=== PATIENT | female | born 1940 | race Caucasian/White ===

== ENCOUNTER 2016-04-18 13:55 | Emergency (ER) | payer MEDICARE ==
[~2016-04-18] VITALS: Ht 160 cm; Wt 65.9 kg
[2016-04-18 13:57] VITALS: BP 176/86; PULSE 98; RESP 20; O2SAT 97
--- NOTE | 2016-04-18 15:07 | ED.REPORT ---
HPI-Dyspnea / Wheezing Date of Service Apr 18, 2016 ED Provider: Kalani Henriquez Nursing Notes Stated Complaint: FEVER,BACK PAIN,SHORT OF BREATH Chief Complaint: Respiratory Complaints Nursing Notes Reviewed: Yes Allergies: Coded Allergies: niacin (Verified Allergy, Mild, 04/18/16) No Known Allergies (Unverified Allergy, Unknown, 03/27/14) Scheduled Albuterol HFA (Proair HFA) 8.5 Gm Hfa.aer.ad 2 PUFFS INHALATION Q4H Azithromycin (Zithromax (Z-Maxwell)) 250 Mg Tablet 250 MG PO DIRECTED Take two tablets by mouth on day 1, then take one tablet daily on days 2 through 5. Prednisone (PredniSONE) 20 Mg Tablet 40 MG PO DAILY General Time Seen by MD: 14:43 Transferred From: Private physician office (urgent care) Chief Complaint Cough, Shortness of breath, Wheezing URI symptoms for past 6 days, fever, short of breath, cough. Seen at and chest x-ray shows a mass to left upper lobe that is mildly displacing the esophagus. Sent to ER for further evaluation and possible admission. Hx Obtained From: Patient Arrived By: Walk-in Sudden in Onset?: Yes Onset Occurred: 6 days ago Context of Onset: Upper resp infection Symptom Duration: Since onset Location: : None Quality: Same as prior Radiation: : Does not radiate Severity: Current: No pain currently Severity: Maximum: No pain Associated with: Reports: Cough, Fever, Denies: Hemoptysis, Nausea, Sore throat, Vomiting Pertinent Negative: Pt denies other symptoms Exacerbated by: Cough, Deep breath Relieved by: Rest Recent Healthcare: Recent doctor visit Similar Sx Previous: No Past Medical History Past Medical History Reports: COPD, Denies: Asthma, Coronary artery disease, Diabetes mellitus, GERD, Hyperlipidemia Smoking History Former Smoker Social History Alcohol Use: Denies alcohol use Drug Use: Denies drug use Other Social History: Good social support Ambulatory Status Independent Review of Systems Basic Review of Systems Eyes: Vision NL, No discharge GI: No abdominal pain, No anorexia, No nausea, No vomiting : No dysuria, No frequency Hematologic: No bleeding, No bruising Endocrine: No cold intolerance, No heat intolerance, No weight gain, No weight loss Neurologic: NL mental status, No weakness, No numbness Psychiatric: Normal thought content Constitutional: Reports: Fatigue, Fever Ears / Nose / Throat: Reports: Nasal congestion, Denies: Ear drainage bilateral, Earache bilateral, Sore throat Respiratory: Reports: Non-productive cough, Wheezing, Denies: Dyspnea on exertion, Hemoptysis, Shortness of breath Cardiovascular: Denies: Chest pain, Edema Musculoskeletal: Denies: Back pain Skin: Denies Bruising, Denies Rash Complete sys rev & neg: except as marked. Physical Exam Initial Vital Signs Vital Signs (First) Date Time Temp Pulse Resp B/P Pulse Ox O2 Delivery O2 Flow Rate FiO2 04/18/16 13:57 36.6 98 20 176/86 97 Room Air Initial VS: Reviewed Head / Eyes: Atraumatic, Normocephalic, PERRL ENT: Mucous membranes moist, Conjunctiva normal, No scleral icterus Abdomen / GI: Soft, Non-tender, No guarding, No rebound, No distention Back: No CVA tenderness Lymphatic: No lymphadenopathy Extremities: Vascular intact, Neuro intact, No swelling, No tenderness Skin: Warm, Dry, No cyanosis Neurologic: Alert, Oriented, Nonfocal Psychiatric: Mood/affect normal, Behavior normal, Normal thought content General/Constitutional: Awake, Alert, No acute distress Neck: Atraumatic, Supple, No tracheal deviation Respiratory / Chest: Atraumatic, No respiratory distress Diminished Breath Sounds: Negative: Decreased bilateral Wheezing / Retractions: Positive: Wheezing expiratory, Negative: Accessory muscle use mild Rales / Rhonchi: Positive: Rhonchi coarse L, Rhonchi coarse R, Rhonchi diffuse Cardiovascular: Heart rate NL, Regular rhythm, Heart sounds NL, No gallop, No murmurs, No rubs Interpretation & Diagnostics Interpretation & Diagnostics: IMPRESSION: 1. No mediastinal mass as suspected on the chest x-ray from earlier today. The questionable mass lesion visualized represents artifact from the densely calcified tortuous thoracic aorta. 2. Borderline enlarged subcarinal lymph node which is a nonspecific finding and may be associated with inflammatory, infectious, or neoplastic etiologies. There are no other findings to suggest neoplasm. Dictated by: Lary Amador M.D. on 04/18/2016 at 17:04 Lab Results Interpretation Result Diagram: 04/18/16 1545 04/18/16 1545 Test 04/18/16 15:45 White Blood Count 7.8th/mm3 (3.8-10.1) Red Blood Count 4.19mil/mm3 (3.90-5.20) Hemoglobin 12.3g/dL (12.0-15.6) Hematocrit 35.4% (35.0-46.0) Mean Corpuscular Volume 84.5fL (81-100) Mean Corpuscular Hemoglobin 29.4pg (27.0-35.0) Mean Corpuscular Hemoglobin Concent 34.7% (32.0-37.0) Red Cell Distribution Width 12.3% (12.3-15.4) Platelet Count 190bil/L (150-400) Neutrophils (%) (Auto) 79.1% (40-74) Lymphocytes (%) (Auto) 11.4% (14-46) Monocytes (%) (Auto) 9.0% (4-12) Eosinophils (%) (Auto) 0% (0-5) Basophils (%) (Auto) 0.4% (0-3) Sodium Level 127mEq/L (134-144) Potassium Level 3.6mEq/L (3.5-5.2) Chloride Level 90mEq/L (97-108) Carbon Dioxide Level 22mmol/L (18-29) Blood Urea Nitrogen 13mg/dL (8-27) Creatinine 0.55mg/dL (0.57-1.00) Estimat Glomerular Filtration Rate 155mL/min (>59) Glucose Level 124mg/dL (60-99) Calcium Level 8.5mg/dL (8.5-10.1) Total Bilirubin 0.3mg/dL (0.0-1.2) Aspartate Amino Transf (AST/SGOT) 25U/L (0-50) Alanine Aminotransferase (ALT/SGPT) 19U/L (0-32) Alkaline Phosphatase 43U/L (25-165) Total Protein 7.4g/dL (6.4-8.4) Albumin 4.2g/dL (3.4-5.0) Hold Munoz Top Tube Received (Received) Lab Results Interpretation: Dr Suero: CBC normal CMP normal except for trace nature anemia CT Chest Interpretation Study type: Chest CT w contrast Interpretation / Wet Read by: Interpret - Radiologist NL CT Chest Findings: Normal mediastinum, No mass, No pneumothorax Re-Eval/Medical Decision Consultation : Referral / Consult Name: Martín Suero MD Tipple Operator: Agrees with eval, Agrees with plan Note: Reviewed case with Dr. Suero who also examined pt and agrees with evaluation and plan. Differential Diagnosis: Positive: COPD exacerbation, Pneumonia, Pulmonary embolism, Upper resp infection Initial concern for pulmonary mass ruled out. Counseled Regarding: Diagnosis, Lab results, When/why to return to ED Discharge & Departure Impression: Primary Impression: COPD exacerbation Disposition: Home Discharge Condition All VS Reviewed: Yes Condition: Improved Patient Instructions: Chronic Obstructive Pulmonary Disease (ED) Additional Instructions: Take your medications as prescribed. Drink plenty of liquids to help thin secretions and help you cough more effectively. You may take Tylenol every 4 to 6 hours and/or ibuprofen every 8 hours for fever and discomfort. Follow up with your regular doctor as needed or return to Urgent Care or the ER for persistent fever, weakness, or any other concerns. Referrals: Roshan Kunz MD (PCP) EDSupervising Provider for APC: Martín Suero MD Attending Statement This was a patient who was initially seen by the mid-level provider then sent over from clinic, however I personally interviewed and examined this patient. There is initial concern as the patient had a complaint of fever cough, she does have known COPD, and had normal abnormal chest x-ray with a concern for possible mass. Of her here in the department the patient actually looks clinically well, she is energetic and clinically well-appearing. She is not currently febrile, she is not hypoxic tachycardic or hypotensive. She underwent a workup that included a chest CT scan, there revealed the abnormality seen on CT appears normal calcification, and does not represent a pathological finding. She does have COPD, but no pneumonia, pneumothorax, or other pathology is evident. Blood work was also normal. On exam she clinically appears quite well. The plan at this point given her symptoms as empiric treatment for COPD exacerbation. Patient's comfortable to need requesting to be discharged home. Kalani Henriquez Apr 18, 2016 15:07 Martín Suero MD Apr 18, 2016 19:31
[2016-04-18] MEDS ORDERED: Albuterol 2.5 mg/3 mL Inhalation Solution NEB ONE (15:10)
[2016-04-18 15:58] LABS: BASOPHILS % (AUTO) 0.4 % (0-3); EOSINOPHILS % (AUTO) 0 % (0-5); Mean Corpuscular Hemoglobin 29.4 pg (27.0-35.0); Mean Corpuscular Volume 84.5 fL (81-100); NEUTROPHILS % (AUTO) 79.1 % (40-74); Platelet Count 190 bil/L (150-400)
[2016-04-18 16:06] VITALS: PULSE 83; RESP 16; O2SAT 96
[2016-04-18 16:59] VITALS: BP 168/71; PULSE 94; RESP 17; O2SAT 98
--- NOTE | 2016-04-18 17:11 | DRSVH ---
PROCEDURE: CT CHEST WITH CONTRAST ([id number]) INDICATIONS: lung mass seen on chest x-ray TECHNIQUE: After the administration of intravenous contrast, 5 mm thick sections acquired from the pulmonary api jeanette to the posterior costophrenic angles. 7 mm thick coronal and sagittal MIP reformats were acquire d. For radiation dose reduction, the following was used: automated exposure control, adjustment of mA and/or kV according to patient size. COMPARISON: [facility], CR, XR CHEST 2VW, 04/18/2016, 13:25. FINDINGS: Image quality: Excellent. Lungs and pleura: There is mild centrilobular emphysema with apical predominance. Scattered apical bl ebs are present as well. No acute airspace opacities. No pleural effusion or pneumothorax. Mediastinum: Heart size is normal. No pericardial effusion. Dense atheromatous calcifications are pre sent at the aortic arch. The thoracic aorta is tortuous and demonstrates mass effect on the adjacent trachea displacing it slightly rightward. There is an 11 mm diameter subcarinal lymph node. No discre te mediastinal or hilar mass lesions. Bones and chest wall: No suspicious bony lesions. No vertebral body compression fractures. No axil apollo or supraclavicular adenopathy by size criteria. Thyroid gland is unremarkable. Abdomen: Visualized upper abdominal solid organs appear normal. Upper abdominal bowel loops are nor mal in caliber. IMPRESSION: 1. No mediastinal mass as suspected on the chest x-ray from earlier today. The questionable mass lesi on visualized represents artifact from the densely calcified tortuous thoracic aorta. 2. Borderline enlarged subcarinal lymph node which is a nonspecific finding and may be associated wit h inflammatory, infectious, or neoplastic etiologies. There are no other findings to suggest neoplasm . Dictated by: Lary Amador M.D. on 04/18/2016 at 17:04 Approved by: Lary Amador M.D. on 04/18/2016 at 17:09
[2016-04-18 18:11] VITALS: BP 165/83; PULSE 90; RESP 22; O2SAT 96
[2016-04-18] MEDS ORDERED: AZIT250T4 PO (18:17)
[2016-04-18] MEDS ORDERED: PRE20 PO (18:17)
[2016-04-18] MEDS ORDERED: ALBU8.5H2 INHALATION (18:17)
[2016-04-18] MEDS ORDERED: predniSONE 20 mg Tablet PO ONE (18:25)
[2016-04-18] MEDS ORDERED: Albuterol HFA 60 Puff 8 Gm Inhaler INHALATION ONE (18:25)
[2016-04-18 18:34] VITALS: BP 165/83; PULSE 90; O2SAT 96
== END 2016-04-18 18:35 | disposition home or self-care (01) ==
LOC: SED 13:55
DX: J44.1 Chronic obstructive pulmonary disease with (acute) exacerbation (principal); R91.8 Other nonspecific abnormal finding of lung field; I10 Essential (primary) hypertension; Z87.891 Personal history of nicotine dependence; Z88.8 Allergy status to other drugs, medicaments and biological substances
CPT/HCPCS: 36415; 71260; 80053; 85025; 94664; 99285; G0463; J7613; Q9967